=== PATIENT | female | born 1940 | race Caucasian/White ===

== ENCOUNTER 2019-02-05 00:06 | Emergency (ER) | payer SELFPAY ==
[~2019-02-05] VITALS: Ht 167.6 cm; Wt 68.0 kg
--- NOTE | 2019-02-05 14:30 | EKG ---
[facility] [address] [facility] [place], [place] [address] Signed Normal sinus rhythm Anteroseptal infarct , age undetermined Abnormal ECG No previous ECGs available Confirmed by MELISSA ANDREWS DO ([id number]) on 02/05/2019 2:29:50 PM Electronically Signed By: MELISSA ANDREWS DO 02/05/19 1430 PATIENT NAME: LOIDA CALIX Electrocardiogram DATE OF : 38 PHYSICIAN: MELISSA ANDREWS DO REPORT #: [id number] REPORT IS CONFIDENTIAL AND NOT TO BE RELEASED WITHOUT AUTHORIZATION
== END 2019-02-05 03:56 | disposition home or self-care (01) ==
LOC: ED 00:06
PROC: 0T9B70Z Drainage of Bladder with Drainage Device, Via Natural or Artificial Opening (ICD-10-PCS; principal; 2019-02-05)
DX: Z00.8 Encounter for other general examination (principal)
CPT/HCPCS: 51701; 71045; 80053; 81001; 84484; 85025; 93005; 93010; 99285-25; G0480; J7030